=== PATIENT | female | born 1930 | race Caucasian/White ===

== ENCOUNTER 2020-12-06 12:49 | Outpatient (CLI) | payer MEDICARE, OTHER | END 2020-12-06 12:50 | disposition home or self-care (01) | LOC: BICRAD 12:49 | PROVIDERS: ATTEND Internal Medicine Medical Oncology | DX: C34.31 Malignant neoplasm of lower lobe, right bronchus or lung (principal); I70.0 Atherosclerosis of aorta; R91.8 Other nonspecific abnormal finding of lung field | CPT/HCPCS: 71046 ==